=== PATIENT | female | born 1960 | race Caucasian/White ===

== ENCOUNTER 2017-05-21 11:21 | Day surgery (SDC) | payer OTHER ==
[~2017-05-21] VITALS: Ht 152.4 cm; Wt 79.7 kg
[~2017-05-21 11:21] MED LIST: ASPI-535 PO; HTN PO; OMEPRAZOLE PO
[2017-05-21 12:01] VITALS: Ht 152.4 cm; Wt 79.7 kg
[2017-05-21] MEDS ORDERED: OMEP40CA6 PO (12:28)
[2017-05-21] MEDS ORDERED: METO-429 PO (12:28)
[2017-05-21] MEDS ORDERED: LISI10TA2 PO (12:28)
[2017-05-21 12:42] VITALS: BP 137/77; PULSE 63; RESP 19
[2017-05-21] MEDS ORDERED: LIDOCAINE 2% (SDV) 5 ML INJ ONE (13:02)
[2017-05-21] MEDS ORDERED: PROPOFOL 20 ML ONE (13:02)
[2017-05-21] MEDS ORDERED: MIDAZOLAM 1 MG/ML 2 ML INJ ONE (13:02)
--- NOTE | 2017-05-21 13:46 | GILP ---
DATE OF PROCEDURE: 05/21/2017 PROCEDURE PERFORMED: Esophagogastroduodenoscopy and biopsy. PREOPERATIVE DIAGNOSES: 1. Upper abdominal pain. 2. Chronic heartburn. POSTOPERATIVE DIAGNOSES: 1. Gastroesophageal reflux disease. 2. Gastritis with erosions. 3. Gastric mucosal biopsies were taken for Helicobacter pylori test. INDICATION: Ms. Dm Barros is a 56-year-old female patient who had upper abdominal pain and chronic heartburn not responding to therapy. The patient was scheduled for endoscopic examination for further evaluation. The procedure and possible complications were well explained to the patient. The patient understood and consented to the procedure. DESCRIPTION OF PROCEDURE: Under influence of anesthesia, the gastroscope was carefully introduced into the esophagus, and under direct vision, it was advanced to the stomach into the pylorus into the duodenal bulb, and descending duodenum. FINDINGS: Esophagus: The patient had gastroesophageal reflux disease. Stomach: She had gastritis with erosions. Gastric mucosal biopsies were taken for H pylori test. Duodenum was normal. She tolerated the procedure very well and there were no complications from the procedure. At the end of procedure, she was awake with stable vital signs and she was discharged home in care of her family. IMPRESSION: 1. Gastroesophageal reflux disease. 2. Gastritis with erosions. 3. Gastric mucosal biopsies were taken for Helicobacter pylori test PLAN: 1. Continue omeprazole. 2. Add Zantac 300 mg p.o. at bedtime. 3. Await H pylori test report. Dictated By: MD BETTY Broderick/melanie/filipe /Document#: [id number] CC: Nona Sanon MD;*[facility]*
[2017-05-21 13:57] VITALS: BP 125/75; PULSE 60; RESP 12
== END 2017-05-21 17:38 | disposition home or self-care (01) ==
LOC: GIL 11:21
PROVIDERS: ATTEND Internal Medicine Gastroenterology
DX: K21.9 Gastro-esophageal reflux disease without esophagitis (principal); K29.60 Other gastritis without bleeding; I10 Essential (primary) hypertension; F32.9 Major depressive disorder, single episode, unspecified
CPT/HCPCS: 43239; 87081; J2250; Z7610

== ENCOUNTER 2018-12-03 15:21 | Emergency (ER) | payer OTHER ==
[~2018-12-03] VITALS: Ht 152.4 cm; Wt 77.8 kg
[~2018-12-03 15:21] MED LIST changes: -HTN PO; +LISI10TA2 PO; +METO-429 PO; +OMEP40CA6 PO; -OMEPRAZOLE PO
[2018-12-03 15:24] VITALS: Ht 152.4 cm; Wt 77.8 kg
[2018-12-03] MEDS ORDERED: AMLO-147 PO (17:25)
[2018-12-03] MEDS ORDERED: ATOR20TA38 PO (17:26)
[2018-12-03] MEDS ORDERED: TRAZ-111 PO (17:26)
[2018-12-03] MEDS ORDERED: PANT40TA3 PO (17:27)
[2018-12-03] MEDS ORDERED: TOLT4CAP13 PO (17:27)
[2018-12-03] MEDS ORDERED: GABA-526 PO (17:28)
[2018-12-03] MEDS ORDERED: TRAM50TA PO (17:29)
[2018-12-03] MEDS ORDERED: DICL75TA2 PO (17:29)
[2018-12-03] MEDS ORDERED: LIDOCAINE/MYLANTA 40 ML BTL PO STA (18:04)
[2018-12-03] MEDS ORDERED: FAMOTIDINE 20 MG INJ IV STA (18:04)
[2018-12-03] MEDS ORDERED: ONDANSETRON 4 MG INJ IV STA (18:04)
[2018-12-03] MEDS ORDERED: BELLADONNA/PHENOBARBITAL TAB PO STA (18:04)
--- NOTE | 2018-12-03 18:09 | ERD ---
ER Documentation Chief Complaint Chief Complaint SENT BY PCP - JONO PAIN X 8 DAYS GOT WORSE TODAY HPI This is a 58-year-old female with a past medical history of hypertension, hyperlipidemia, gastritis on Protonix, chronic abdominal pain is presenting with an exacerbated episode of her chronic abdominal pain. The patient reports ep igastric and right upper quadrant abdominal pain, exacerbated by eating which got acutely worse yesterday and today. The patient reports being seen by multiple doctors. She has been told she has a fatty liver. She is also been diagnosed with gastritis. She has been evaluated by gastroenterology in the past and has had endoscopies. The patient reports that her pain was most severe last night and this morning. She does have discomfort, but the majority of her pain has since subsided. The patient endorses nausea but no vomiting. She does not endorse any changes to bowel movements. She has not had any constipation or diarrhea. She has not had any black or bloody or tarry stools. She denies any dysuria or hematuria or urgency or frequency. The patient denies feeling sick recently. The patient denies fever or chills. The patient has had no headache or vision changes. The patient does not endorse neck or back pain. The patient denies lightheadedness or dizziness. The patient has had no chest pain or trouble breathing. The patient has had no focal deficits. The patient has had no weakness or numbness or tingling to the face or extremities. ROS All systems reviewed and are negative except as per history of present illness. Medications Home Meds Reported Medications Tramadol Hcl* (Ultram*) 50 Mg Tablet, 50 MG PO Q8 PRN for NEEDED, TAB 12/03/18 Diclofenac Sodium* (Diclofenac Sodium*) 75 Mg Tablet.dr, 75 MG PO BID, #60 TAB 12/03/18 Gabapentin* (Gabapentin*) 600 Mg Tablet, 600 MG PO BID, #60 TAB TAKE 1TAB-QAM AND 2TAB-QHS 12/03/18 Tolterodine Tartrate* (Tolterodine Tartrate* ER) 4 Mg Cap.er.24h, 4 MG PO DAILY, #30 CAP 12/03/18 Pantoprazole* (Protonix*) 40 Mg Tablet.dr, 40 MG PO DAILY, TAB 12/03/18 Trazodone Hcl* (Trazodone Hcl*) 50 Mg Tablet, 50 MG PO QHS, #30 TAB 12/03/18 Atorvastatin Calcium* (Atorvastatin Calcium*) 20 Mg Tablet, 20 MG PO QHS, #30 TAB 12/03/18 Amlodipine Besylate* (Amlodipine Besylate*) 10 Mg Tablet, 10 MG PO DAILY, #30 TAB 12/03/18 Discontinued Reported Medications Omeprazole* (Omeprazole*) 40 Mg Capsule.dr, 40 MG PO DAILY, #30 CAP 05/21/17 Lisinopril* (Lisinopril*) 10 Mg Tablet, 10 MG PO DAILY, #30 TAB 05/21/17 Metoprolol Tartrate* (Lopressor*) 50 Mg Tab, 50 MG PO BID, #60 TAB 05/21/17 Aspirin Ec (Aspir 81) 81 Mg Tablet.dr, 81 MG PO DAILY, TAB 10/19/14 Allergies Allergies: Coded Allergies: No Known Allergy (Unverified , 12/03/18) PMhx/Soc History of Surgery: Yes (HYSTERECTOMY, LEFT SHOULDER SURGERY) Anesthesia Reaction: Yes Hx Neurological Disorder: No Hx Respiratory Disorders: No Hx Cardiac Disorders: Yes (HYPERTENSION) Hx Psychiatric Problems: Yes (DEPRESSION) Hx Miscellaneous Medical Probl: Yes (OBESITY) Hx Alcohol Use: No Hx Substance Use: No Hx Tobacco Use: No FmHx Family History: No diabetes Physical Exam Vitals Vital Signs Date Temp Pulse Resp B/P (MAP) Pulse Ox O2 O2 Flow FiO2 Time Delivery Rate 12/03/18 98.0 76 18 158/74 99 15:24 (102) Physical Exam Const: No apparent distress, well-developed, well-nourished Head: Normocephalic, Atraumatic Eyes: Normal Conjunctiva. Extraocular movements intact. Pupils equal, round and reactive to light ENT: Normal External Ears, Nose and Mouth. Neck: Full range of motion. No meningismus. Resp: Clear to auscultation bilaterally, No wheezes, rales or rhonchi Cardio: Regular rate and rhythm. No murmurs, rubs or gallops Abd: Soft, non distended. mild epigastric and right upper quadrant discomfort without exquisite tenderness. No rebound or guarding. Normal bowel sounds Skin: No petechiae or rashes Back: No midline tenderness. No CVA tenderness Ext: No cyanosis, or edema Neur: Awake and alert, oriented 4. Cranial nerves intact. No facial droop. Normal strength, sensation and coordination. Psych: Normal Mood and Affect Result Diagram: 12/03/18 1625 12/03/18 1625 Results 24 hrs Laboratory Tests Test 12/03/18 16:25 12/03/18 17:05 White Blood Count 5.0 10^3/ul Red Blood Count 4.39 10^6/ul Hemoglobin 13.7 g/dl Hematocrit 39.7 % Mean Corpuscular Volume 90.4 fl Mean Corpuscular Hemoglobin 31.2 pg Mean Corpuscular Hemoglobin Concent 34.5 g/dl Red Cell Distribution Width 11.7 % Platelet Count 330 10^3/UL Mean Platelet Volume 9.6 fl Immature Granulocytes % 0.200 % Neutrophils % 45.0 % Lymphocytes % 40.8 % Monocytes % 9.0 % Eosinophils % 3.8 % Basophils % 1.2 % Nucleated Red Blood Cells % 0.0 /100WBC Immature Granulocytes # 0.010 10^3/ul Neutrophils # 2.3 10^3/ul Lymphocytes # 2.1 10^3/ul Monocytes # 0.5 10^3/ul Eosinophils # 0.2 10^3/ul Basophils # 0.1 10^3/ul Nucleated Red Blood Cells # 0.0 10^3/ul Sodium Level 140 mmol/L Potassium Level 4.1 mmol/L Chloride Level 103 mmol/L Carbon Dioxide Level 26 mmol/L Anion Gap 11 Blood Urea Nitrogen 13 mg/dl Creatinine 0.67 mg/dl Est Glomerular Filtrat Rate mL/min > 60 mL/min Glucose Level 100 mg/dl Calcium Level 10.1 mg/dl Total Bilirubin 0.2 mg/dl Direct Bilirubin 0.00 mg/dl Indirect Bilirubin 0.2 mg/dl Aspartate Amino Transf (AST/SGOT) 26 IU/L Alanine Aminotransferase (ALT/SGPT) 37 IU/L Alkaline Phosphatase 78 IU/L Total Protein 8.4 g/dl Albumin 4.6 g/dl Globulin 3.80 g/dl Albumin/Globulin Ratio 1.21 Lipase 89 U/L Urine Color STRAW Urine Clarity CLEAR Urine pH 6.0 Urine Specific [place] 1.003 Urine Ketones NEGATIVE mg/dL Urine Nitrite NEGATIVE mg/dL Urine Bilirubin NEGATIVE mg/dL Urine Urobilinogen NEGATIVE mg/dL Urine Leukocyte Esterase NEGATIVE Mandi/ul Urine Hemoglobin NEGATIVE mg/dL Urine Glucose NEGATIVE mg/dL Urine Total Protein NEGATIVE mg/dl Procedures/MDM MDM The patient's presentation warrants further investigation. Previous medical records, if available, were reviewed. LABS The patient's laboratory testing was obtained and reviewed. No emergent treatment was required unless described below. CBC: No E/o of systemic infection or severe anemia or thrombocytopenia CMP: No E/o severe acidosis or alkalosis or renal failure or liver disease or diabetic ketoacidosis Lipase: No E/o pancreatitis Urine: No E/o acute infection or hematuria IMAGING Imaging and Radiology interpretation reviewed. Ultrasound right upper quadrant FINDINGS: The liver demonstrates increased echogenicity. The liver is normal in size and no focal solid lesions are seen. The liver measures 13.6 cm in length. The portal vein is patent with normal direction of flow. No intrahepatic biliary dilatation is seen. No gallstones are identified within the gallbladder. There is no pericholecystic fluid or gallbladder wall thickening. The common bile duct measures 3 mm in maximal dimension. The visualized portions of the pancreas are unremarkable. The tail of the pancreas is not seen. No free fluid is identified. The right kidney is normal in size, and demonstrate normal echogenicity and cortical thickness. The right kidney measures 9.7 cm in long dimension. There is no evidence of hydronephrosis. There are no kidney stones. There is a 1 cm simple cyst in the right kidney. IMPRESSION: Fatty infiltration of the liver. No evidence of gallstones. Small simple cyst in the right kidney. Electronically viewed and signed by .Miguel Caldwell MD, on 12/03/2018 16:52 TREATMENT/DISPOSITION The patient presents with symptoms most consistent with possible gastritis. The patient was given Zofran, Pepcid and a GI cocktail in the emergency department. The patient does have steatosis, which is already known to her. There is no evidence of gallstones and I have low suspicion for cholecystitis or biliary colic. There also appear to be small simple cysts to the right kidney, which is likely an incidental finding. There is no evidence of viscus perforation. The patient presents with abdominal pain. The patient does not have any evidence of peritonitis. The patient does not have clinical symptoms concerning for mesenteric ischemia or ischemic colitis. The patient does not have left upper quadrant tenderness. I have low suspicion for pancreatitis. The patient does not have any right lower quadrant tenderness, or periumbilical tenderness. I have low suspicion for appendicitis. The patient does not have suprapubic tenderness. I have decreased suspicion for cystitis. The patient does not have any left lower quadrant tenderness, and I have low suspicion for diverticulosis or diverticulitis. The patient does not have any flank tenderness. The patient does not have gross hematuria. I have decreased suspicion for nephrolithiasis or renal colic. The patient does not have any palpable pulsatile mass or severe abdominal pain radiating to the back. I have low suspicion for aortic aneurysm, dissection or rupture. Upon reevaluation of the patient, symptoms have improved. No emergent diagnoses were identified. At this time, I feel that the patient stable for discharge. The patient was instructed to follow-up with a primary care physician in 1-3 days. The patient will be given strict precautions with which to return to the emergency department. Prescriptions: John PauldLouisan The patient's blood pressure was elevated at greater than 120/80 while in the emergency department. The patient was otherwise stable with no evidence of hypertensive urgency or emergency. The patient does not require admission for blood pressure control. I have discussed with the patient the risks of hypertension. I have instructed the patient to return to the ER for any new or worsening symptoms including chest pain, shortness of breath, headache, blurred vision, confusion, nausea, vomiting or LOC. I have advised the patient to follow up with the primary care physician for outpatient monitoring and treatment for hypertension in 1-3 days. Disclaimer: Inadvertent spelling and grammatical errors are likely due to EHR/dictation software use and do not reflect on the overall quality of patient care. Note that the electronic time recorded on this note does not necessarily reflect the actual time of the patient encounter. Departure Diagnosis: Primary Impression: Chronic abdominal pain Additional Impressions: Epigastric abdominal pain Nausea Steatosis of liver Renal cyst Condition: ANISH Jones MD Dec 03, 2018 18:08
[2018-12-03] MEDS ORDERED: FAMO-96 PO (18:11)
[2018-12-03] MEDS ORDERED: ZOF8 PO (18:11)
[2018-12-03 19:08] VITALS: BP 123/77; PULSE 89; RESP 18
== END 2018-12-03 19:11 | disposition home or self-care (01) ==
LOC: E/R 15:21
DX: K76.0 Fatty (change of) liver, not elsewhere classified (principal); N28.1 Cyst of kidney, acquired; R11.0 Nausea; I10 Essential (primary) hypertension; E66.9 Obesity, unspecified; Z79.82 Long term (current) use of aspirin; Z68.33 Body mass index [BMI] 33.0-33.9, adult
CPT/HCPCS: 36415; 76705; 80053; 81003; 83690; 85025; 96374; 96375; 99285; J2405